=== PATIENT | female | born 2000 ===

== ENCOUNTER 2018-11-18 23:03 | Emergency (ER) | payer OTHER ==
[2018-11-18 23:13] VITALS: BP 112/64
--- NOTE | 2018-11-19 00:46 | ER Document Report ---
ED GI/ - General Chief Complaint: Vag Bleeding, +preg <12wks Stated Complaint: VAGINAL BLEEDING Time Seen by Provider: 11/19/18 00:38 Notes: Patient is a 18-year-old female, at 8 weeks gestation by first trimester ultrasound, that comes to the emergency department for chief complaint of vaginal bleeding that started this evening. She states she is bleeding somewhat heavily, went through 2 pads, soft clots. She denies any abdominal pain, pelvic pain, flank pain, dizziness, vomiting, injury. She denies any surgeries. On vitamins and antinausea medication that she cannot recall the name of. TRAVEL OUTSIDE OF THE [place] IN LAST 30 DAYS: No - Related Data Allergies/Adverse Reactions: No Known Allergies Allergy (Unverified 11/18/18 23:06) Past Medical History - General Information source: Patient, Relative - Social History Smoking Status: Never Smoker Chew tobacco use (# tins/day): No Drug Abuse: None Lives with: Family Family History: Reviewed & Not Pertinent Patient has suicidal ideation: No Patient has homicidal ideation: No - Medical History Medical History: Negative Renal/ Medical History: Denies: Hx Peritoneal Dialysis Surgical Hx: Negative - Immunizations Immunizations up to date: Yes Hx Diphtheria, Pertussis, Tetanus Vaccination: Yes Review of Systems - Review of Systems Constitutional: No symptoms reported EENT: No symptoms reported Cardiovascular: No symptoms reported Respiratory: No symptoms reported Gastrointestinal: No symptoms reported Genitourinary: No symptoms reported Female Genitourinary: See HPI Musculoskeletal: No symptoms reported Skin: No symptoms reported Hematologic/Lymphatic: No symptoms reported Neurological/Psychological: No symptoms reported Physical Exam - Vital signs Vitals: Temp Pulse Resp BP Pulse Ox 97.9 F 78 18 112/64 100 11/18/18 23:12 11/18/18 23:12 11/18/18 23:12 11/18/18 23:12 11/18/18 23:12 - Notes Notes: GENERAL: Alert, interacts well. No acute distress. HEAD: Normocephalic, atraumatic. EYES: Pupils equal, round, and reactive to light. Extraocular movements intact. ENT: Oral mucosa moist, tongue midline. Oropharynx unremarkable. Airway patent. Nares patent, no nasal septal hematoma, TM's intact. NECK: Full range of motion. Supple. Trachea midline. LUNGS: Clear to auscultation bilaterally, no wheezes, rales, or rhonchi. No respiratory distress. HEART: Regular rate and rhythm. No murmur ABDOMEN: Soft, non-tender. Non-distended. Bowel sounds present in all 4 quadrants. GENITOURINARY: Deferred EXTREMITIES: Moves all 4 extremities spontaneously. No edema, normal radial and dorsalis pedis pulses bilaterally. No cyanosis. BACK: no cervical, thoracic, lumbar midline tenderness. No saddle anesthesia, normal distal neurovascular exam. NEUROLOGICAL: Alert and oriented x3. Normal speech. [cranial nerves II through XII grossly intact]. PSYCH: Normal affect, normal mood. SKIN: Warm, dry, normal turgor. No rashes or lesions noted. Course - Re-evaluation Re-evalutation: Patient smiling and well-appearing. Unremarkable vital signs. Nontender abdomen. No complaints of pain. CBC unremarkable. No heavy bleeding reported during her stay. RhoGam is not indicated. HCG is very elevated. Ultrasound showing subchorionic hemorrhage, living intrauterine , nonspecific otherwise. No acute emergent findings. I discussed the results of this in detail with patient at length in addition to her remaining labs. Provided with copy of report, discussed recommendations, follow-up, and return precautions. [place] [employer] [place] states she will be seen in very close follow-up. Discussed return precautions. Patient and significant other state understanding and agreement. - Vital Signs Vital signs: Temp Pulse Resp BP Pulse Ox 97.9 F 70 14 112/64 98 11/18/18 23:12 11/19/18 02:31 11/19/18 02:31 11/18/18 23:12 11/19/18 02:31 - Laboratory Result Diagrams: 11/19/18 00:40 Laboratory results interpreted by me: 11/19/18 00:40 Beta HCG, Quant [id number] H Discharge - Discharge Clinical Impression: Vaginal bleeding affecting early Condition: Good Disposition: HOME, SELF-CARE Additional Instructions: Your ultrasound shows a living in the uterus, also shows a subchorionic bleed as the cause of your bleeding. This can also cause cramping. Please perform pelvic precautions to make it more likely that the bleed will resolve. Do not do any intense physical activity (avoid running, jumping, lifting heavy objects, sexual intercourse, etc.) until cleared by [employer]. Return if you worsen including severe pain, heavy bleeding with dizziness or passing out, or any other concerning or worsening symptoms. Forms: Return to Work
[2018-11-19 00:57] LABS: ABSOLUTE EOSINOPHILS # (AUTO) 0.1 10^3/uL (0.0-0.6); ABSOLUTE LYMPHOCYTES (AUTO) 2.8 10^3/uL (0.5-4.7); ABSOLUTE MONOCYTES (AUTO) 0.6 10^3/uL (0.1-1.4); ABSOLUTE NEUT (AUTO) 6.1 10^3/uL (1.7-8.2); BASOPHILS % (AUTO) 0.5 % (0-2); EOSINOPHILS % (AUTO) 0.8 % (0-6); HEMATOCRIT 38.3 % (36.0-47.0); HEMOGLOBIN 12.9 g/dL (12.0-15.5); LYMPHOCYTES % (AUTO) 29.2 % (13-45); MEAN CORPUSCULAR HEMOGLOBIN 29.4 pg (27.0-33.4); MEAN CORPUSCULAR HGB CONC 33.7 g/dL (32.0-36.0); MEAN CORPUSCULAR VOLUME 87 fl (80-97); MONOCYTES % (AUTO) 5.8 % (3-13); PLATELET COUNT 310 10^3/uL (150-450); RED BLOOD COUNT 4.38 10^6/uL (3.72-5.28); RED CELL DISTRIBUTION WIDTH 12.9 % (11.5-14.0); SEGMENTED NEUTROPHILS % (AUTO) 63.7 % (42-78); TOTAL CELLS COUNTED % (AUTO) 100 %; WHITE BLOOD COUNT 9.6 10^3/uL (4.0-10.5)
--- NOTE | 2018-11-19 02:00 | RADIOLOGY REPORT (SQ) ---
EXAM DESCRIPTION: US TRANSVAGINAL COMPLETED DATE/TME: 11/19/2018 00:44 CLINICAL HISTORY: 18 years Female, vaginal bleeding, approx 8 weeks gestation COMPARISON: None TECHNIQUE: Transvaginal. LIMITATIONS: None. FINDINGS: Living intrauterine fetus measures 9 w5d with MELIA of 06/19/2019. Cardiac activity is 163-bpm. [place]-rump length is 2.85-cm. 3.3 x 1.8 x 0.4 cm subchorionic hemorrhage. 3.8-cm right ovary, 3.0 cm likely right corpus luteal cyst, nonvisualized left ovary, 3.2-cm cervical length, and trace posterior cul-de-sac free fluid. IMPRESSION: Living 1st trimester intrauterine gestation. 3.3 cm perigestational hemorrhage.
== END 2018-11-19 02:32 | disposition home or self-care (01) ==
LOC: ER 23:03
DX: O20.9 Hemorrhage in early pregnancy, unspecified (principal); Z3A.08 8 weeks gestation of pregnancy
CPT/HCPCS: 36415; 76817; 84702; 85025; 86900; 86901; 93976; 99284